=== PATIENT | female | born 1995 | race Hispanic/Latino ===

== ENCOUNTER 2017-07-15 14:03 | Emergency (ER) | payer OTHER ==
[2017-07-15 14:20] VITALS: BP 131/72; PULSE 69; RESP 18; TEMP 98; O2SAT 99
--- NOTE | 2017-07-15 14:47 | ED PDOC ---
HPI: Headache Time Seen by Provider: 07/15/17 14:42 Chief Complaint (Nursing): Headache Chief Complaint (Provider): Nose pain History Per: Patient History/Exam Limitations: no limitations Onset/Duration Of Symptoms: Hrs (1) Quality: Pressure Associated Symptoms: denies: Blurred Vision, Nausea, Vomiting Additional Complaint(s): Patient is a 21 y/o female presenting to the emergency department for decreasing nose pain ongoing for one hour with an associated headache status post face injury in which patient reports carrying a couch up the stairs when she tripped and the couch struck her face. Reports that the headache is now gone (improved from initial pain rating of 6/10) and only feels pressure around her nose. Denies loss of consciousness, nausea, vomiting, or acute and immediate dizziness on onset, vision loss or changes, strange sensory complaints , use of blood thinners, history of spontaneous bleeding, and EtOH consumption prior to arrival. Of note, patient was referred here after going to an Urgent Care facility for possible concussion and to get an x-ray to rule out a broken nose. PCP: none provided. Past Medical History Vital Signs: Last Vital Signs Temp 98.0 F 07/15/17 14:18 Pulse 69 07/15/17 14:18 Resp 18 07/15/17 14:18 BP 131/72 07/15/17 14:18 Pulse Ox 99 07/15/17 14:18 - Family History Family History: States: No Known Family Hx - Allergies Allergies/Adverse Reactions: Allergies Allergy/AdvReac Type Severity Reaction Status Date / Time No Known Allergies Allergy Verified 07/15/17 14:17 Review of Systems ROS Statement: Except As Marked, All Systems Reviewed And Found Negative Eyes: Negative for: Vision Change (or vision loss) Gastrointestinal: Positive for: Diarrhea. Negative for: Nausea, Vomiting Musculoskeletal: Positive for: Other (Nose pain) Neurological: Positive for: Headache (resolved). Negative for: Dizziness, Other (loss of consciousness, or sensory changes) Physical Exam - Reviewed Nursing Documentation Reviewed: Yes Vital Signs Reviewed: Yes - Physical Exam Appears: Positive for: Non-toxic, No Acute Distress Head Exam: Positive for: NORMOCEPHALIC. Negative for: ATRAUMATIC Skin: Positive for: Normal Color, Warm, Dry Eye Exam: Positive for: Normal appearance, EOMI. Negative for: Other (orbital step-off) ENT: Negative for: Other (septal hematoma or deviation) Neck: Positive for: Normal, Painless ROM, Supple Respiratory: Negative for: Accessory Muscle Use, Respiratory Distress Extremity: Positive for: Normal ROM Neurologic/Psych: Positive for: Alert, field trainer II-XII (normal), Oriented (x3), Cerebellar Tests (normal), Gait (normal). Negative for: Motor/Sensory Deficits (on upper and lower extremities), Facial Droop, Other (pronator drift) Comments: Abrasion and swelling on the right side of nasal bridge - ECG O2 Sat by Pulse Oximetry: 99 (RA) Pulse Ox Interpretation: Normal Medical Decision Making Medical Decision Making: Time: 14:35 Initial impression: Nose trauma Initial plan: ED Urine Nasal bones X-Ray Reevaluation 15:04 X-ray reviewed and findings noted as follows: There is a minimally depressed fracture of the distal portion of the nasal bone. The anterior maxillary spine is intact. IMPRESSION: Minimally depressed distal nasal fracture. 15:11 Upon provider reevaluation patient is feeling better, is medically stable, and requires no further treatment in the ED at this time. Provided ice for the patient to apply over her nose. Counseling was provided and all questions were answered regarding diagnosis and need to follow up with Dr. Timothy France ( plastic surgery). There is agreement to discharge plan. Return if neurological symptoms arise or if pain persists or worsen. Clinical impression: nasal bone fracture Scribe Attestation: Documented by Lashae Mckeon, acting as a scribe for GEMINI Gibson. Provider Scribe Attestation: All medical record entries made by the Scribe were at my direction and personally dictated by me. I have reviewed the chart and agree that the record accurately reflects my personal performance of the history, physical exam, medical decision making, and the department course for this patient. I have also personally directed, reviewed, and agree with the discharge instructions and disposition. Disposition - Clinical Impression Clinical Impression: Nasal bone fracture - Patient ED Disposition Is Patient to be Admitted: No Doctor Will See Patient In The: Office Counseled Patient/Family Regarding: Studies Performed, Diagnosis, Need For Followup - Disposition Referrals: Timothy France MD [Staff Provider] - Disposition: Routine/Home Disposition Time: 15:11 Condition: STABLE Instructions: Nasal Fracture (ED) Forms: [email or web address] (Sami)
--- NOTE | 2017-07-15 15:06 | RAD ---
PROCEDURE: Radiographs of Nasal Bones HISTORY: injury COMPARISON: None available. TECHNIQUE: Frontal and lateral radiographs of the nasal bones. FINDINGS: There is a minimally depressed fracture of the distal portion of the nasal bone. The anterior maxillary spine is intact. IMPRESSION: Minimally depressed distal nasal fracture.
== END 2017-07-15 15:20 | disposition home or self-care (01) ==
LOC: H.ER 14:03
DX: S02.2XXA Fracture of nasal bones, initial encounter for closed fracture (principal); W19.XXXA Unspecified fall, initial encounter; Y92.89 Other specified places as the place of occurrence of the external cause